=== PATIENT | female | born 1965 | race Caucasian/White ===

== ENCOUNTER 2023-02-02 10:14 | Emergency (ER) | payer BC, SELFPAY ==
--- NOTE | 2023-02-02 10:16 | XR_ITS ---
FINAL REPORT CLINICAL HISTORY: fall, acute left hip pain COMPARISON: None FINDINGS: LEFT HIP: Two views of the left hip demonstrate no acute fracture or dislocation. The joint spaces appear normal. The visualized bony structures are well aligned. No soft tissue abnormality is seen. IMPRESSION: No acute bony abnormality. Reviewed, Interpreted and Dictated by Mu Jacobs MD Transcribed by Sosa Cuevas Authenticated and [facility]
[2023-02-02 11:25] VITALS: BP 131/86; PULSE 73; RESP 18; TEMP 36.8; O2SAT 98; BMI 31.9
--- NOTE | 2023-02-02 12:00 | EXP.UTC ---
Discharge Plan Disposition Patient Disposition: Home, Self-Care Condition: Good Prescriptions Prescriptions: No Action sertraline 50 mg tablet 50 mg PO DAILY fluticasone furoate-vilanterol [Breo Ellipta] 200-25 mcg/dose blister with device 1 inh INHALATION DAILY Label Comments: INHALE 1 PUFF BY MOUTH IN THE MORNING Referrals Follow up/Referrals: Maco Sharif MD [Primary Care Provider] - See instructions Activity Restrictions/Add. Instructions Additional Instructions/Restrictions: *weight bearing as tolerated *RICE, Rest the extremity, Ice 15-20 minutes 3-4 times daily, Compress- wear the sarah wrap as discussed as much as possible to help reduce swelling and pain, Elevate the extremity when at rest *Use crutches to help get around for the next few days *Elevate when resting? *Ibuprofen 600-800mg every 6-8 hours as needed for pain an inflammation. If need something more can take Tylenol in between doses of Ibuprofen to help Immediately follow up with your family doctor for new or worsening of symptoms, or no noticeable improvement over the next 3-5 days Clinical Impressions Clinical Impression: Contusion of hip Stand Alone Forms Stand Alone Forms: Work/School Release Instructions Patient Instructions: Contusion, DI for Hip Pain, Ibuprofen Discharge ED Provider: Debora Wyatt [facility] General Stated complaint: Fall@home 01/31 LT hip Mode of Arrival: Ambulatory Source of Information: Patient Limitations: No Limitations Time Seen by Provider: 02/02/23 12:00 Description of Symptoms (Recalled from Triage Doc. by RN): PATIENT C/O LEFT HIP PAIN AFTER SLIPPING IN WATER AND FALLING Thursday HEENT Symptoms (Recalled from RN notes): No Resp Symptoms (Recalled from RN notes): No Skin Symptoms (Recalled from RN notes): No MS Symptoms (Recalled from RN notes): Yes Functional Status (Recalled from RN notes): WNL History of Present Illness Provider Complaint: Patient states that she spilt a cup of water on her hardwood floor and as she was trying to clean it up she slipped and fell and landed on her left hip States that she has been having pain in her left hip every since when she puts weight on it Denies rotation of foot Denies issues or pain moving foot Related Data Home Medications Medication Instructions Recorded Confirmed fluticasone furoate 200 1 inh inhalation DAILY Asthma 02/02/23 02/02/23 mcg-vilanterol 25 mcg/dose inhalation powder (Breo Ellipta) sertraline 50 mg tablet 50 mg PO DAILY Depression 02/02/23 02/02/23 Allergies Allergy/AdvReac Type Severity Reaction Status Date / Time No Known Allergies Allergy Verified 02/02/23 11:31 Worker's Comp Is this a Worker's Comp case?: No [facility] Disclaimer: The information contained in this section may have been updated after the patient was seen, as this information can be updated by other users. Medical History (Updated 02/02/23 @ 12:27 by Debora Wyatt APRN) Anxiety Asthma Depression Urinary tract infection Social History Smoking Status: Unknown if ever smoked alcohol intake: never current occupational status: employed Travel in the last 8 weeks: None ROS Obtained: Yes All systems reviewed & no additional complaints except as documented and Yes Systems reviewed as appropriate & no additional complaints except as documented ENT Ears, Nose, Mouth, and Throat: Reports system reviewed and no additional complaints, except as documented and Reports as per HPI Cardiovascular Cardiovascular: Reports system reviewed and no additional complaints, except as documented and Reports as per HPI Respiratory Respiratory: Reports system reviewed and no additional complaints, except as documented and Reports as per HPI Gastrointestinal Gastrointestingal: Reports system reviewed and no additional complaints, except as documented and as per HPI Musculoskeletal Musculoskeletal: Reports system reviewed and
[2023-02-02 12:28] VITALS: BP 131/86; PULSE 73; RESP 18; TEMP 36.8; O2SAT 98
== END 2023-02-02 12:31 | disposition home or self-care (01) ==
PROVIDERS: Emergency Provider Nurse Practitioner; PCP Family Medicine
DX: S70.02XA Contusion of left hip, initial encounter (principal); J45.909 Unspecified asthma, uncomplicated; F41.9 Anxiety disorder, unspecified; F32.A Depression, unspecified; W01.0XXA Fall on same level from slipping, tripping and stumbling without subsequent striking against object, initial encounter
CPT/HCPCS: 73502; 99204; 99212; G0463